=== PATIENT | male | born 1960 | race Caucasian/White ===

== ENCOUNTER 2019-07-09 20:11 | Emergency (ER) | payer OTHER ==
[~2019-07-09] VITALS: Ht 170.2 cm; Wt 80.0 kg
[2019-07-09] MEDS ORDERED: FLUT1DIS IH (20:31)
[2019-07-09] MEDS ORDERED: URSO500T9 PO (20:32)
[2019-07-09] MEDS ORDERED: [UNRECOGNIZED DRUG - OTHER] (20:33)
[2019-07-09] MEDS ORDERED: ALBU2.5V8 INH (20:33)
[2019-07-09] MEDS ORDERED: MONT10TA80 PO (20:33)
[2019-07-09 21:15] VITALS: BP 140/82
--- NOTE | 2019-07-09 22:49 | RAD ---
EXAM: PA, oblique and lateral views of the right hand DATE: 07/09/2019 8:26 PM INDICATION: Trauma to right hand, 3rd digit with pain and swelling COMPARISON: No Prior FINDINGS: No acute fracture or dislocation. Subtle marginal erosions are seen at the middle phalanx centered at the DIP joint. Mild soft tissue swelling about the right wrist and right lung finger. IMPRESSION: No acute fracture or dislocation. Subtle erosions centered at the DIP joint right middle finger with soft tissue swelling, nonspecific but may be seen with erosive/inflammatory arthropathy such as erosive/reactive arthropathy. Electronically signed by: Jacob Farrell MD (07/09/2019 10:46 PM) [id number]
--- NOTE | 2019-07-09 22:59 | PHYS DOC ---
Past History Past Medical History: Asthma, Liver Disease, Other Additional Past Medical Histor: primary biliary colongitis--inherited Past Surgical History: Other Additional Past Surgical Histo: mult liver bx Alcohol Use: None Adult General Chief Complaint Chief Complaint: HAND PROBLEM HPI HPI Patient is a [58-year-old male presenting with stubbed middle finger got it stubbed on a medicine ball. Pain is maximal at the PIP nonradiating Allergies Allergies Allergies Coded Allergies Type Severity Reaction Last Updated Verified No Known Drug Allergies 07/09/19 No Physical Exam Physical Exam Constitutional: Well developed, well nourished, no acute distress, non-toxic appearance. [] HENT: Normocephalic, atraumatic, bilateral external ears normal, oropharynx moist, no oral exudates, nose normal. [] Eyes: PERRLA, EOMI, conjunctiva normal, no discharge. [] Neck: Normal range of motion, no tenderness, supple, no stridor. [] Pulmonary: Normal respiratory effort no increased work of breathing no obvious chest wall trauma Skin: Warm, dry, no erythema, no rash. [] Back: No tenderness, no CVA tenderness. [] Extremities: Tenderness and swelling at the PIP of the middle finger on the affected hand] Neurologic: Alert and oriented X 3, normal motor function, normal sensory function, no focal deficits noted. [] Psychologic: Affect normal, judgement normal, mood normal. [] Current Patient Data Vital Signs Vital Signs Date Time Temp Pulse Resp B/P (MAP) Pulse Ox O2 Delivery O2 Flow Rate FiO2 07/09/19 20:15 98.1 62 20 143/87 (105) 95 Room Air EKG EKG [] Radiology/Procedures Radiology/Procedures [] Impressions: the right wrist and right lung finger. IMPRESSION: No acute fracture or dislocation. Subtle erosions centered at the DIP joint right middle finger with soft tissue swelling, nonspecific but may be seen with erosive/inflammatory arthropathy such as erosive/reactive arthropathy. Electronically signed by: Jacob Farrell MD (07/09/2019 10:46 PM) [id number] DICTATED AND SIGNED BY: JACOB FARRELL MD DATE: 07/09/19 2246 CC: SOLEDAD BARBOSA; PHANI HERNANDEZ MD ~ Course & Med Decision Making Course & Med Decision Making Pertinent Labs and Imaging studies reviewed. (See chart for details) [] No acute fracture identified we placed the patient in a finger splint for comfort I did tell about the findings of arthritis in the DIP otherwise rest ice gradual return to activity he is not having any symptoms at the DIP joint either. Dragon Disclaimer Dragon Disclaimer This electronic medical record was generated, in whole or in part, using a voice recognition dictation system. Departure Departure: Impression: Primary Impression: Finger sprain Disposition: 01 HOME, SELF-CARE Condition: STABLE Patient Instructions: Finger Sprain, [id number] PHANI HERNANDEZ MD Jul 09, 2019 22:59
== END 2019-07-09 21:18 | disposition home or self-care (01) ==
LOC: ER 20:11
DX: S63.632A Sprain of interphalangeal joint of right middle finger, initial encounter (principal); J45.909 Unspecified asthma, uncomplicated; W22.8XXA Striking against or struck by other objects, initial encounter; Y93.89 Activity, other specified; Y92.89 Other specified places as the place of occurrence of the external cause; Y99.8 Other external cause status
CPT/HCPCS: 29130; 73130; 99283

== ENCOUNTER 2019-09-22 16:46 | Emergency (ER) | payer OTHER ==
[~2019-09-22] VITALS: Ht 170.2 cm; Wt 79.0 kg
[~2019-09-22 16:46] MED LIST: ALBU2.5V8 INH; FLUT1DIS IH; MONT10TA80 PO; URSO500T9 PO; [UNRECOGNIZED DRUG - OTHER]
[2019-09-22 16:53] VITALS: BP 139/82
--- NOTE | 2019-09-22 17:32 | RAD ---
Single view chest dated 09/22/2019: No comparison available. Clinical Indication: Pain. [place] pop.. Findings: Single upright portable exam of the chest was performed. Heart and mediastinal contours within normal limits. Lungs are clear. No consolidation or pleural effusion. No pneumothorax. There is mild asymmetric fullness of the left hilum relative to the right side. Impression:: 1. No acute radiographic abnormality. 2. Mild asymmetric fullness at the upper left hilum is probably related to variant vascular overlap, although adenopathy or a pulmonary nodule is not excluded. Suggest follow-up PA and lateral exam for better evaluation. Electronically signed by: Ramses Camara MD (09/22/2019 5:29 PM) CATHY
--- NOTE | 2019-09-22 17:41 | RAD ---
EXAM: Left ribs, 3 views. HISTORY: Pain. COMPARISON: None. FINDINGS: 3 views of the left ribs are obtained. No acute fracture is seen. There is suspected left infrahilar atelectasis or scarring. There is a 4 mm metallic foreign body overlying the mid abdomen. IMPRESSION: No acute osseous finding. Electronically signed by: Olivia Proctor MD (09/22/2019 5:38 PM) [facility]
--- NOTE | 2019-09-22 17:46 | PHYS DOC ---
Past History Past Medical History: Asthma, Liver Disease, Other Additional Past Medical Histor: primary biliary colangitis--inherited Past Surgical History: Other Additional Past Surgical Histo: mult liver bx Alcohol Use: None General Adult EDM: Chief Complaint: RIB PAIN HPI: HPI: 58-year-old male presents with left-sided rib pain. Patient was lifting weights couple weeks ago when he felt a pop in the left lateral ribs while lifting a weight lying on his stomach. He rested that area and it improved. It has intermittently hurt with his exercises since. Today he went on a run and did not lift weights at all. It did not hurt while he was running, but afterward it was painful and he decided he should get it evaluated. He denies cough or shortness of breath. He does not have chest pain. Denies fever chills. Review of Systems: Review of Systems: Constitutional: Denies fever or chills Eyes: Denies change in visual acuity HENT: Denies nasal congestion or sore throat Respiratory: Denies cough or shortness of breath Cardiovascular: Denies chest pain or edema GI: Denies abdominal pain, nausea, vomiting, bloody stools or diarrhea : Denies dysuria Musculoskeletal: Left rib pain Integument: Denies rash Neurologic: Denies headache, focal weakness or sensory changes Endocrine: Denies polyuria or polydipsia Lymphatic: Denies swollen glands Psychiatric: Denies depression or anxiety Heart Score: Risk Factors: Risk Factors: DM, Current or recent (<one month) smoker, HTN, HLP, family history of CAD, obesity. Risk Scores: Score 0 - 3: 2.5% MACE over next 6 weeks - Discharge Home Score 4 - 6: 20.3% MACE over next 6 weeks - Admit for Clinical Observation Score 7 - 10: 72.7% MACE over next 6 weeks - Early Invasive Strategies Allergies: Allergies: Allergies Coded Allergies Type Severity Reaction Last Updated Verified No Known Drug Allergies 07/09/19 No Physical Exam: PE: Constitutional: Well developed, well nourished, no acute distress, non-toxic appearance. [] HENT: Normocephalic, atraumatic, bilateral external ears normal, oropharynx moist, no oral exudates, nose normal. [] Eyes: PERRLA, EOMI, conjunctiva normal, no discharge. [] Neck: Normal range of motion, no tenderness, supple, no stridor. [] Cardiovascular: Heart rate regular rhythm, no murmur [] Lungs & Thorax: Bilateral breath sounds clear to auscultation. Mild tenderness with left lateral rib palpation around rib 7. [] Abdomen: Bowel sounds normal, soft, no tenderness, no masses, no pulsatile masses. [] Skin: Warm, dry, no erythema, no rash. [] Back: No tenderness, no CVA tenderness. [] Extremities: No tenderness, no cyanosis, no clubbing, ROM intact, no edema. [] Neurologic: Alert and oriented X 3, normal motor function, normal sensory function, no focal deficits noted. [] Psychologic: Affect normal, judgement normal, mood normal. [] Current Patient Data: Vital Signs: Vital Signs Date Time Temp Pulse Resp B/P (MAP) Pulse Ox O2 Delivery O2 Flow Rate FiO2 09/22/19 16:53 98.4 66 16 139/82 (101) 97 Room Air EKG: EKG: [] Radiology/Procedures: Radiology/Procedures: [] Impressions: EXAM: Left ribs, 3 views. HISTORY: Pain. COMPARISON: None. FINDINGS: 3 views of the left ribs are obtained. No acute fracture is seen. There is suspected left infrahilar atelectasis or scarring. There is a 4 mm metallic foreign body overlying the mid abdomen. IMPRESSION: No acute osseous finding. Electronically signed by: Olivia Dominguez MD (09/22/2019 5:38 PM) [facility] DICTATED AND SIGNED BY: OLIVIA DOMINGUEZ MD DATE: 09/22/19 1738 CC: COMFORT QUINONES DO; SOLEDAD BARBOSA ~ Single view chest dated 09/22/2019: No comparison available. Clinical Indication: Pain. [place] pop.. Findings: Single upright portable exam of the chest was performed. Heart and mediastinal contours within normal limits. Lungs are clear. No consolidation or pleural effusion. No pneumothorax. There is mild asymmetric fullness of the left hilum relative to the right side. Impression:: 1. No acute radiographic abnormality. 2. Mild asymmetric fullness at the upper left hilum is probably related to variant vascular overlap, although adenopathy or a pulmonary nodule is not excluded. Suggest follow-up PA and lateral exam for better evaluation. Electronically signed by: Ramses Camara MD (09/22/2019 5:29 PM) [facility]CTATED AND SIGNED BY: RAMSES CAMARA MD DATE: 09/22/19 172 CC: COMFORT QUINONES DO; SOLEDAD BARBOSA ~ Course & Med Decision Making: Course & Med Decision Making Pertinent Labs and Imaging studies reviewed. (See chart for details) The patient's chest x-ray and rib x-rays are negative for acute rib findings. There is a possible incidental finding on chest x-ray. See official report for details. No believe this is bearing on the patient's current symptoms. This is likely a strained intercostal muscle. I have advised him that it may take some time to improve but will get better on its own. He is stable for discharge at this time. [] Dragon Disclaimer: Renetta Disclaimer: This electronic medical record was generated, in whole or in part, using a voice recognition dictation system. Departure Departure: Impression: Primary Impression: Intercostal muscle pain Disposition: HOME/RESIDENCE PRIOR TO ADM Condition: STABLE Referrals: SOLEDAD BARBOSA (PCP) Patient Instructions: Chest Wall Pain, [id number] COMFORT QUINONES DO September 22, 2019 17:46
== END 2019-09-22 17:53 | disposition home or self-care (01) ==
LOC: ER 16:46
DX: R07.81 Pleurodynia (principal); J45.909 Unspecified asthma, uncomplicated
CPT/HCPCS: 71045; 71100; 99284

== ENCOUNTER 2019-12-29 17:01 | Emergency (ER) | payer OTHER ==
[~2019-12-29] VITALS: Ht 170.2 cm; Wt 79.0 kg
[2019-12-29 17:14] VITALS: BP 135/78
[2019-12-29] MEDS ORDERED: AMOX1TAB61 PO (17:20)
--- NOTE | 2019-12-29 17:20 | PHYS DOC ---
Past History Past Medical History: Asthma, Liver Disease, Other Additional Past Medical Histor: primary biliary colangitis--inherited Past Surgical History: Other Additional Past Surgical Histo: mult liver bx Alcohol Use: None Adult General Chief Complaint Chief Complaint: ANIMAL BITE HPI HPI Patient is a 59-year-old male who presents for cat bite. 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 Patient reports x6 puncture wounds that are superficial in nature. Patient reports pain that is tolerable without any intervention. Patient able to move extremities freely, no changes in motor or sensory function. Patient concerned given cat bite and potential need for antibiotics prompting him to seek care at our ER for further evaluation. Patient denies any fever, no streaking since episode, mild swelling and edema at site without any obvious neurological deficits Review of Systems Review of Systems Fourteen body systems of review of systems have been reviewed. See HPI for pertinent positives and negative responses, other [place] all other systems are negative, non-pertinent or non-contributory Allergies Allergies Allergies Coded Allergies Type Severity Reaction Last Updated Verified No Known Drug Allergies 07/09/19 No Physical Exam Physical Exam Constitutional: Well developed, well nourished, no acute distress, non-toxic appearance. HENT: Normocephalic, atraumatic, bilateral external ears normal, oropharynx moist, no oral exudates, nose normal. Eyes: PERRLA, EOMI, conjunctiva normal, no discharge. Neck: Normal range of motion, no tenderness, supple, no stridor. Cardiovascular: Heart rate regular, sinus rhythm, no murmurs rubs or gallops Lungs & Thorax: Bilateral breath sounds clear to auscultation Abdomen: Bowel sounds normal, soft, no tenderness, no masses, no pulsatile masses. Nonsurgical abdomen, no peritoneal signs Skin: Warm, dry, no rash. X6 superficial puncture wounds around base of right thumb, no streaking, no obvious edema, no crepitus, no exudate, no hematoma or bleeding Back: No tenderness, no CVA tenderness. Extremities: No tenderness, no cyanosis, no clubbing, ROM intact, no edema. Neurologic: Alert and oriented X 3, grossly normal motor & sensory function, no focal deficits noted. Psychologic: Affect normal, judgement normal, mood normal. EKG EKG [] Radiology/Procedures Radiology/Procedures [] Course & Med Decision Making Course & Med Decision Making Well-appearing patient seen on immediate ER arrival ABCs unremarkable Comprehensive history and physical exam obtained Discuss concerning nature of cat bite, discussed that greater than 80% of cat bites of left untreated will develop into infection. I discussed need for m edical intervention with prescription for Augmentin, patient amenable Patient educated on potential side effects of Augmentin. Patient also educated on strict return precautions regarding worsening infection stemming from cat bite inoculation All questions and concerns addressed prior to ER departure in stable condition with 5-day prescription for Augmentin and close PCP follow-up in upcoming 1 to 10 days time Renetta Disclaimer Renetta Disclaimer This electronic medical record was generated, in whole or in part, using a voice recognition dictation system. Departure Departure: Impression: Primary Impression: Cat bite of finger Disposition: 01 HOME/RESIDENCE PRIOR TO ADM Condition: STABLE Referrals: SOLEDAD BARBOSA (PCP) Patient Instructions: Amoxicillin; Clavulanic Acid tablets, Animal Bite Scripts Amoxicillin/Potassium Clav (AUGMENTIN 875-125 TABLET) 1 Each Tablet 1 TAB PO BID for Cat Bite for 7 Days, #14 TAB 0 Refills Prov: HARRIET SHARMA DO 12/29/19 Justification of Admission: Justification of Admission: Justification of Admission Dx: N/A HARRIET SHARMA DO Dec 29, 2019 17:20
[2019-12-29] MEDS ORDERED: AMOXICILLIN/K CLAV 875/125MG TABLET. ONE (17:30)
== END 2019-12-29 17:32 | disposition home or self-care (01) ==
LOC: ER 17:01
DX: S61.031A Puncture wound without foreign body of right thumb without damage to nail, initial encounter (principal); J45.909 Unspecified asthma, uncomplicated; W55.01XA Bitten by cat, initial encounter; Y93.89 Activity, other specified; Y92.89 Other specified places as the place of occurrence of the external cause; Y99.8 Other external cause status
CPT/HCPCS: 99283

== ENCOUNTER 2020-06-12 04:17 | Emergency (ER) | payer OTHER ==
[~2020-06-12] VITALS: Ht 170.2 cm; Wt 92.8 kg
[~2020-06-12 04:17] MED LIST changes: +AMOX1TAB61 PO
[2020-06-12 04:20] VITALS: BP 117/58
--- NOTE | 2020-06-12 04:47 | PHYS DOC ---
Past History Past Medical History: No Pertinent History, Asthma, Liver Disease, Other Additional Past Medical Histor: primary biliary colangitis--inherited Past Surgical History: Other Additional Past Surgical Histo: mult liver bx Alcohol Use: None Adult General HPI HPI Patient is a 59-year-old male who presents to the emergency department with a chief complaint of rectal pain. States that about an hour before coming the emergency department he had an episode of pain at the entrance of his rectum for about 10 to 15 minutes, 6 out of 10, sharp in nature. States he is only had that happen to him once before but it has been a while and it resolved on its own. States that the episode was similar to this 1. States that soon after calling the ambulance the pain completely subsided and was asymptomatic. States he kind of felt bad but since the ambulance came decided come to the emergency department. States that he is been asymptomatic since he left his house. Denies any pain currently. Denies any headache, dizziness, chest pain, shortness of breath, abdominal pain, nausea, vomiting. Denies any recent travel, illnesses, fevers, known ill contacts, Covid/flu symptoms. States he had a normal bowel movement yesterday and is making urine normally. Review of Systems Review of Systems Review of systems otherwise unremarkable except noted in HPI Allergies Allergies Allergies Coded Allergies Type Severity Reaction Last Updated Verified No Known Drug Allergies 07/09/19 No Physical Exam Physical Exam Constitutional: Well developed, well nourished, no acute distress, non-toxic appearance. [] HENT: Normocephalic, atraumatic,oropharynx moist, no oral exudates, Eyes: conjunctiva normal, no discharge. [] Cardiovascular:Heart rate regular rhythm, no murmur [] Lungs & Thorax: Bilateral breath sounds clear to auscultation [] Abdomen: Bowel sounds normal, soft, no tenderness, no masses, no pulsatile masses. [] : Penis circumcised with normal testicles. Rectum/anus with no obvious traumas, abscesses, fissures, hemorrhoids or bleeding. Denies any pain on palpation in and around rectum. Skin: Warm, dry, no erythema, no rash. [] Extremities: No tenderness, no cyanosis, no clubbing, ROM intact, no edema. [] Neurologic: Alert and oriented X 3, normal motor function, normal sensory function, no focal deficits noted. [] Psychologic: Affect normal, judgement normal, mood normal. [] EKG EKG [] Radiology/Procedures Radiology/Procedures [] Heart Score Risk Factors: Risk Factors: DM, Current or recent (<one month) smoker, HTN, HLP, family history of CAD, obesity. Risk Scores: Risk Factors: DM, Current or recent (<one month) smoker, HTN, HLP, family history of CAD, obesity. Course & Med Decision Making Course & Med Decision Making Patient is a 59-year-old male who presents with an intermittent episode of rectal pain Vital signs not concerning. Physical exam noted above. Patient states that before he left the house the pain had completely subsided and is asymptomatic here in the emergency department. Denies any need for nausea or pain medicine. Denies any recent traumas, illnesses or blood in the stool. States he is otherwise eating and drinking normally. States he is making urine and stool normally. Denies any foreign bodies in the rectum or any anal intercourse. States that he has a primary care physician that he can call today because he is supposed to set up a scheduled colonoscopy anyway for follow-up since on his last colonoscopy the head cut out a polyp. Offered patient nausea and pain medicine to take home if needed. Patient stated he felt fine and did not really need the medicine. Advised to call primary care physician first thing the morning to discuss ED visit and set up appropriate exams and follow-up visit. Advised to come back to the ED with new or concerning symptoms. Patient grateful, verbalized understanding and agreed with plan of discharge. [] Dragon Disclaimer Dragon Disclaimer This electronic medical record was generated, in whole or in part, using a voice recognition dictation system. Departure Departure: Impression: Primary Impression: Rectal pain Disposition: 01 DC HOME SELF CARE/HOMELESS Condition: GOOD Referrals: SOLEDAD BARBOSA (PCP) Additional Instructions: Please call your primary care physician first thing this morning to set up a post ER follow-up visit and discuss your issues. Please discussed the need for colonoscopy as well. Please come back to the emergency department immediately with any new or concerning symptoms. GERTRUDE ROJAS MD Jun 12, 2020 04:47
== END 2020-06-12 05:04 | disposition home or self-care (01) ==
LOC: ER 04:17
DX: K62.89 Other specified diseases of anus and rectum (principal); J45.909 Unspecified asthma, uncomplicated
CPT/HCPCS: 99281; 99283